=== PATIENT | female | born 1950 | race Caucasian/White ===

== ENCOUNTER 2018-04-28 00:20 | Outpatient (CLI) | payer MEDICARE, SELFPAY ==
--- NOTE | 2018-04-28 14:17 | DI.US_ITS ---
SYMPTOM/DIAGNOSIS: CAROTIC ARTERY STENOSIS I65.29 BILATERAL DUPLEX CAROTID ULTRASOUND 04/28/18 Duplex evaluation of the carotid circulation was performed according to the usual protocol. There is a total occlusion of the internal carotid artery on the right. There is 50-60% luminal diameter stenosis proximal left internal carotid artery on the basis of elevated peak systolic velocities, 171 cm/second. There are high grade stenoses of the ECA's bilaterally. Normal flow velocities in common carotid arteries. There is bilateral antegrade vertebral flow. CONCLUSION: Findings consistent with right ICA occlusion and 50-60% luminal diameter stenosis left ICA, proximal
== END 2018-04-28 00:40 ==
PROVIDERS: PCP Nurse Practitioner Family; Visit Provider Nurse Practitioner Family
DX: I65.23 Occlusion and stenosis of bilateral carotid arteries (principal)
CPT/HCPCS: 93880

== ENCOUNTER 2018-11-09 01:12 | Outpatient (CLI) | payer OTHER, SELFPAY ==
--- NOTE | 2018-11-09 12:50 | DI.RAD_ITS ---
SYMPTOMS/DIAGNOSIS: SCREENING FOR OSTEOPOROSIS IN POSTMENOPAUSAL WOMAN, Z78.0 DEXA SCAN: The scanogram is unremarkable. For the left hip, a T score of -0.6 and a Z score of 0.9 indicate osteopenia and an increased fracture risk. For the lumbar spine, a T score of 1.2 and a Z score of 3.4 are within the normal range. For the left forearm, a T score of -1.0 and a Z score of 1.0 are within the normal range.
== END 2018-11-09 01:32 ==
PROVIDERS: PCP Nurse Practitioner Family; Visit Provider Nurse Practitioner Family
DX: Z78.0 Asymptomatic menopausal state (principal); Z13.820 Encounter for screening for osteoporosis
CPT/HCPCS: 77080

== ENCOUNTER 2019-11-07 04:13 | Outpatient (CLI) | payer OTHER, SELFPAY ==
[2019-11-07 08:27] LABS: Hemoglobin A1C 5.6 % (3.8-5.6)
[2019-11-07 09:23] LABS: Calculated LDL 131 mg/dL (<100); Cholesterol 237 mg/dL (<200); HDL Cholesterol 62 mg/dL (40-60); Triglyceride 220 mg/dL (<150)
[2019-11-07 09:49] LABS: FREE T4 0.92 ng/dL (0.76-1.46)
[2019-11-17 17:07] LABS: BUN 19 mg/dL (7-18); Glucose 85 mg/dL (74-106)
[2019-11-17 17:08] LABS: CREATININE 0.78 mg/dL (0.55-1.02); Sodium 143 mmol/L (136-145)
[2019-11-17 17:09] LABS: CO2 29.1 mmol/L (21.0-32.0); Chloride 105 mmol/L (98-107); Potassium 4.1 mmol/L (3.5-5.1)
[2019-11-17 17:10] LABS: Anion Gap 8.9 mmol/L (3-11); TSH 1.83 uIU/mL (0.36-3.74)
== END 2019-11-07 04:33 ==
PROVIDERS: PCP Nurse Practitioner Family; Visit Provider Nurse Practitioner Family
DX: I10 Essential (primary) hypertension (principal); E78.5 Hyperlipidemia, unspecified; I77.9 Disorder of arteries and arterioles, unspecified
CPT/HCPCS: 36415; 80048; 80061; 83036; 84439; 84443

== ENCOUNTER 2021-02-25 01:40 | Outpatient (CLI) | payer OTHER, SELFPAY ==
--- NOTE | 2021-02-25 06:45 | DI.RAD_ITS ---
Exam(s) XR HIP RT COMPLETE AP PELVIS EXAM: XR HIP RT COMPLETE AP PELVIS-three views CLINICAL HISTORY: right hip pain x 6mo.M25.551. TECHNIQUE: 2D digital imaging was performed. COMPARISON: CR RIGHT HIP COMPLETE from 01/24/2013 FINDINGS: There is no evidence of pelvic or hip fracture. Additional views of the right hip reveal mild degene rative changes. No osseous lesions. No evidence of avascular necrosis. IMPRESSION: DATA REPOSITORY: RADIATION DOSE DELIVERED:
== END 2021-02-25 02:00 ==
PROVIDERS: PCP Nurse Practitioner Family; Visit Provider Nurse Practitioner Family
DX: M25.551 Pain in right hip (principal)
CPT/HCPCS: 73502

== ENCOUNTER 2021-05-15 00:23 | Outpatient (CLI) | payer OTHER, SELFPAY ==
--- NOTE | 2021-05-15 06:15 | DI.MAMMO_ITS ---
Exam(s) MAMMO SCREENING EXAM: MAMMO SCREENING CLINICAL HISTORY: screening,z12.39. TECHNIQUE: Bilateral full field digital CC and MLO mammographic images were obtained with 3D tomosyn thesis and utilizing computer aided detection (CAD). COMPARISON: Prior mammograms dating back to 2011, the most recent being October 2017. FINDINGS: No new significant radiograph findings in left breast. In the anterior aspect of the right breast there is a new microcalcification group. This is located quite anteriorly and just medial to the nipple. Requires spot compression magnification views. Ante riorly there is a peripherally calcified small oil cyst noted, this being independent of the other mi crocalcification group described above. No associated mass. There is no significant architectural distortion nor skin thickening-retraction. IMPRESSION: 1. No radiographic evidence of malignancy in left breast. 2. New anteriorly located right breast microcalcification group. Spot magnification views in both CC and MLO planes recommended. Also possible ultrasound depending on results of the additional spot co mpression views. BI-RADS Category 0 - Assessment Incomplete: Need additional imaging evaluation Breast Density - Category B - Scattered areas of fibroglandular density Breast density Category C or D implies that the patient has dense breast tissue. Dense breast tissue can make it harder to find cancer on a mammogram. Dense breast tissue is also associated with an incr eased risk of breast cancer. This information about the result of the mammogram report was provided to the patient to raise their awareness. Use this report when you speak with the patient about their risks for breast cancer, which includes their family history. At that time, you may recommend additional screening tests (Ultrasoun d or MRI) as these tests may add significant information. A negative radiographic report should not delay biopsy if a dominant or clinically suspicious mass is present. Up to ten percent of cancers are not identified on mammography. A negative report may reinforce clinical impression. Adenosis and dense breasts may obscure an underlying neoplasm. False positive reports average 6 to 10%. Patient will receive a letter notifying them of these results.
== END 2021-05-15 00:43 ==
PROVIDERS: PCP Nurse Practitioner Family; Visit Provider Nurse Practitioner Family
DX: Z12.31 Encounter for screening mammogram for malignant neoplasm of breast (principal); R92.8 Other abnormal and inconclusive findings on diagnostic imaging of breast; R92.0 Mammographic microcalcification found on diagnostic imaging of breast
CPT/HCPCS: 77063; 77067

== ENCOUNTER 2021-05-28 01:28 | Outpatient (CLI) | payer OTHER, SELFPAY ==
--- NOTE | 2021-05-28 09:30 | DI.US_ITS ---
Exam(s) MG MAMMO SCREEN CALL BACK UNI US BREAST RT LIMITED EXAM: MG MAMMO SCREEN CALL BACK UNI CLINICAL HISTORY: F/U ABNL MAMMO, NEW MICROCALCIFICATION, CALCIFIED SMALL OIL CYST, RT BREAST TECHNIQUE: Mammograms were interpreted according to the usual protocol including computer analysis w [employer] CAD system, tomosynthesis and C-view imaging. COMPARISON: FINDINGS: Additional mammographic views of the right breast and right breast ultrasound are interpreted in conj unction. These examinations were obtained to evaluate microcalcifications of the medial retroareolar portion of the right breast seen on recent mammogram. Magnification views show 10-12 microcalcifications in this grouping, most are rounded but there are s ome linear and curvilinear forms period the appearance of new group of microcalcification with these abnormal forms would increase risk of malignancy. No mammographically or ultrasonographically identi fied mass in this patient. The microcalcifications were not visible ultrasonographically. A 3 britton meter or oil cyst seen mammographically lateral to the nipple is also identified ultrasonographically today. IMPRESSION: Suspicious grouping of microcalcifications in medial retroareolar portion of the breast. Biopsy is r ecommended and should be performed stereotactically due to the inability to visualize ultrasonographi peg. BI-RADS Category 4 - Suspicious Abnormality: Biopsy should be considered Breast Density - Category B - Scattered areas of fibroglandular density
== END 2021-05-28 01:48 ==
PROVIDERS: PCP Nurse Practitioner Family; Visit Provider Nurse Practitioner Family
DX: R92.8 Other abnormal and inconclusive findings on diagnostic imaging of breast (principal); R92.0 Mammographic microcalcification found on diagnostic imaging of breast
CPT/HCPCS: 76642; 77063; 77067

== ENCOUNTER 2022-03-10 11:17 | Outpatient (CLI) | payer MEDICARE, SELFPAY ==
--- NOTE | 2022-03-10 | DI.RAD_ITS ---
Exam(s) XR CHEST 2V PA LATERAL EXAM: XR CHEST 2V PA LATERAL CLINICAL HISTORY: PULMONARY NODULES,R91.1,S/P BRONCHOSCOPY,NOW COUGH AND SOB TECHNIQUE: 2D digital imaging was performed. COMPARISON: No exams were available for comparison FINDINGS: HEART: Normal size. Aorta: PULMONARY VASCULATURE: Normal. LUNGS: Clear. PLEURAL SPACE: No pleural effusion or pneumothorax. BONE:Unremarkable for age. No pneumomediastinum or pneumoperitoneum. IMPRESSION: No acute abnormality. DATA REPOSITORY: RADIATION DOSE DELIVERED:
== END 2022-03-10 11:37 ==
LOC: DI 11:18
PROVIDERS: PCP Nurse Practitioner Family; Visit Provider Internal Medicine Critical Care Medicine
DX: R91.1 Solitary pulmonary nodule (principal); R05.8 Other specified cough; R06.02 Shortness of breath
CPT/HCPCS: 71046

== ENCOUNTER 2022-10-07 01:19 | Outpatient (CLI) | payer MEDICARE, SELFPAY ==
--- NOTE | 2022-10-07 06:45 | DI.CT_ITS ---
Exam(s) CT BRAIN NECK CTA EXAM: CT BRAIN NECK CTA CLINICAL HISTORY: acute left sided weakness,r53.1. TECHNIQUE: Imaging Protocol: Axial CT angiography was performed with multi-slice acquisition and mu lti-planar and/or 3D reconstructions. CONTRAST MATERIAL: Intravenous: Omnipaque 350 Contrast volume:structured data in ml COMPARISON: Carotid Doppler 04/28/2018 FINDINGS: CTA Neck W: Aortic arch anatomy: There is moderate atherosclerotic at the origin of great vessels off the aortic arch. 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 Anterior circulation: Both common carotid arteries ascend mild plaque and no tight stenosis. On the right side there is again noted occlusion of the right internal carotid artery at its origin, as was evident in 2018. This vessel is not reconstituted in the neck; this vessel is reconstituted at the supraclinoid aspect. Significant plaque cyst is also evident on the left side at the carotid bulb and proximal internal ca rotid artery. Estimated approximately 60 percent stenosis at this level. Above this level the left ICA is moderately tortuous in the upper neck but is patent and is also demonstrated be patent in the skull base-carotid canal. Posterior circulation: Both vertebral arteries originate in conventional fashion off of the subclavian arteries and there is no obvious stenosis at the origin of the vertebral arteries. Both vertebral arteries exhibit normal and equal luminal diameters within the foramen transversarium. No evidence of intraluminal thrombus nor dissection of the vertebral arteries. Both vertebral arteries contribute to the formation of the basilar artery at the skull base. CTA Brain W: Anterior circulation: The left internal carotid artery is patent in the skull base. There is mural calcification within th e intracavernous ICA but no tight stenosis therein. Supraclinoid aspect is patent. On the opposite- right side the occluded right ICA exhibits very thin flow within the cavernous sinus but is essential ly reconstituted at the supraclinoid aspect. Both A1 segments are patent as are the anterior cerebral arteries. There is no evidence of aneurysm at the level of the anterior communicating artery. Both middle cerebral arteries are patent with no evidence of significant stenosis nor intraluminal th rombus. There also no aneurysms of these vessels. Posterior circulation: The basilar artery ascends in the midline. Distally it gives off patent bilateral superior cerebella r arteries. Above this level the basilar artery terminates as patent bilateral posterior cerebral arteries. There appears to be a thin posterior communicating artery on the right side of the [id number]. There is no evidence of aneurysm at the tip of the basilar artery nor elsewhere in the [id number] is. CT BRAIN: There is no evidence of intracranial hemorrhage, mass effect, or shift of midline structures. There are no extra-axial fluid collections. Ventricles are not enlarged or shifted. There are no ring enh ancing lesions in the brain and no abnormal meningeal enhancement. IMPRESSION: 1. The right internal carotid artery is occluded at its origin and reconstituted in the intracranial compartment at the supraclinoid aspect of this vessel. There is approximately 60 percent stenosis at the origin of the left ICA in the neck. Occluded right ICA in the neck was demonstrated on Doppler ultrasound study performed April 2018. 2. Patent vertebral arteries. 3. Patent intracranial arteries. 4. No CT evidence of acute intracranial infarct, hemorrhage, nor abnormal ring-enhancing lesions in t he brain. There is also no abnormal meningeal enhancement. RADIATION DOSE DELIVERED: 2,225.59mGy.cm Total DLP DATA REPOSITORY: All CT scans at this facility are submitted to the National Radiology Data Registry (NRDR) Dose Index Registry (DIR) with the [employer] (ACR). RADIATION OPTIMIZATION: All CT scans at this facility use at least one of these dose optimization te chniques: automated exposure control; mA and/or kV adjustment per patient size (includes targeted exa ms where dose is matched to clinical indication); or iterative reconstruction.
[2022-10-07 08:42] LABS: CREATININE 0.8 mg/dL (0.55-1.02); Estimated GFR 77.27 (mL/min/1.73m2)
[2022-10-07 08:48] LABS: Calculated LDL 103 mg/dL (<100); Cholesterol 212 mg/dL (<200); HDL Cholesterol 77 mg/dL (40-60); Triglyceride 163 mg/dL (<150)
[2022-10-07] MEDS: Normal Saline - Diluent 50 ML VIAL IJ (08:53)
[2022-10-07] MEDS: Normal Saline Flush 10 ML SYR IVP (08:54)
[2022-10-07] MEDS: Omnipaque 350 MG/ML 500 ML BTL-Imaging package IJ (08:54)
== END 2022-10-07 01:39 ==
LOC: DI 01:19
PROVIDERS: PCP Nurse Practitioner Family; Visit Provider Nurse Practitioner Family
DX: R53.1 Weakness (principal); I10 Essential (primary) hypertension; I65.29 Occlusion and stenosis of unspecified carotid artery; I73.9 Peripheral vascular disease, unspecified; I77.9 Disorder of arteries and arterioles, unspecified
CPT/HCPCS: 70496; 70498; 80061; 82565

== ENCOUNTER 2023-02-23 10:08 | Outpatient (CLI) | payer MEDICARE, SELFPAY ==
[2023-02-23 12:45] LABS: Calculated LDL 93 mg/dL (<100); Cholesterol 173 mg/dL (<200); HDL Cholesterol 60 mg/dL (40-60); Triglyceride 102 mg/dL (<150)
[2023-02-24 09:52] LABS: Hepatitis C Ab w Rflx HCV PCR Negative (Negative)
[2023-02-24 11:27] LABS: Lab Add On Test DONE
[2023-02-24 11:39] LABS: Anion Gap 18.7 mmol/L (3-11); BUN 43 mg/dL (7-18); CO2 19.3 mmol/L (21.0-32.0); CREATININE 1.5 mg/dL (0.55-1.02); Calcium 9.4 mg/dL (8.5-10.1); Chloride 113 mmol/L (98-107); Estimated GFR 36.34 (mL/min/1.73m2); Glucose 440 mg/dL (74-106); Potassium 4.3 mmol/L (3.5-5.1); Sodium 151 mmol/L (136-145)
== END 2023-02-23 10:09 | disposition home or self-care (01) ==
LOC: LOS 10:09
PROVIDERS: PCP Nurse Practitioner Family; Referring Provider Nurse Practitioner Family; Visit Provider Nurse Practitioner Family
DX: E78.5 Hyperlipidemia, unspecified (principal); I10 Essential (primary) hypertension; Z11.59 Encounter for screening for other viral diseases
CPT/HCPCS: 36415; 80048; 80061; 86803

== ENCOUNTER 2023-02-27 03:14 | Outpatient (CLI) | payer MEDICARE, SELFPAY ==
[2023-02-27 12:32] LABS: Abs Immature Grans 0.01 10^3/uL (0.0-0.06); Absolute Basophil Count 0.06 10^3/uL (0.0-0.2); Absolute Lymphocyte Count 1.36 10^3/uL (1.2-3.4); Absolute Neutrophil Count 4.77 10^3/uL (1.2-6.7); Basophils % 0.8; Eosinophils % 5.2; HCT 41.5 % (36.0-46.0); HGB 13.9 g/dL (11.2-15.7); Immature Grans % 0.1; Lymphocytes % 17.7; MCH 33.2 pg (27.0-33.0); MCHC 33.5 % (32.0-36.0); MCV 99 fL (80-95); MPV 11.3 fL (8.0-11.0); Monocytes % 14.3; Neutrophils % 61.9; Platelet Count 330 10^3/uL (130-400); RBC 4.19 10^6/uL (3.93-5.22); RDW 12.9 % (11.7-14.6); RDW-SD 46.9 fL
[2023-02-27 12:45] LABS: Hemoglobin A1C 5.5 % (<5.7)
[2023-02-27 12:54] LABS: ALT 31 U/L (14-59); AST 23 U/L (15-37); Albumin 3.5 g/dL (3.4-5.0); Alkaline Phosphatase 104 U/L (46-116); Anion Gap 9.4 mmol/L (3-11); BUN 22 mg/dL (7-18); Bilirubin, Total 0.4 mg/dL (0.2-1.0); CO2 26.6 mmol/L (21.0-32.0); Chloride 100 mmol/L (98-107); Estimated GFR 59.12 (mL/min/1.73m2); Glucose 103 mg/dL (74-106); Potassium 3.4 mmol/L (3.5-5.1); Sodium 136 mmol/L (136-145); Total Protein 7.3 g/dL (6.4-8.2)
[2023-02-27 13:09] LABS: Vitamin D 25 Total 40.7 ng/mL (30-100)
== END 2023-02-27 03:15 | disposition home or self-care (01) ==
LOC: LOS 03:14
PROVIDERS: PCP Nurse Practitioner Family; Visit Provider Nurse Practitioner Family
DX: Z00.00 Encounter for general adult medical examination without abnormal findings (principal); E78.5 Hyperlipidemia, unspecified; I10 Essential (primary) hypertension
CPT/HCPCS: 36415; 80053; 82306; 83036; 85025

== ENCOUNTER → 2023-03-05 01:47 | Outpatient (CLI) | payer MEDICARE, SELFPAY ==
--- NOTE | 2023-03-05 08:45 | DI.DEXA_ITS ---
Exam(s) XR DEXA BONE DENSITY W/WO ROQUE EXAM: XR DEXA BONE DENSITY W/WO ROQUE CLINICAL HISTORY: osteopenia, POSTMENOPAUSAL STATUS, Z78.0 TECHNIQUE: Routine DEXA evaluation of the lumbar spine, hip, or forearm. COMPARISON: Prior DEXA scan of October 2018. FINDINGS: Performed on a [employer] unit. Lateral image: No compression fracture evident. Lumbar Spine total T-score: 1.8. Prior reading in October 2018 was 0.9 Hip total T-score:-0.6. This is identical reading to 2018. Independent reading at the level of the femoral neck yields T-score of -1.2 Forearm total T-score: -0.5 IMPRESSION: Bone mineral density measures in the osteopenia range. Fracture risk is moderate. Note: Any spine fracture indicates 5x risk for subsequent spine fracture and 2x risk for subsequent h ip fracture. World Health Organization criteria for BMD interpretation classify patients: Normal...... T- Score at or above -1.0 Osteopenic... T- Score between -1.0 and -2.5 Osteoporosis... T-Score at or below -2.5
== END ==
PROVIDERS: PCP Nurse Practitioner Family; Visit Provider Nurse Practitioner Family
DX: Z78.0 Asymptomatic menopausal state (principal); Z12.31 Encounter for screening mammogram for malignant neoplasm of breast; M85.89 Other specified disorders of bone density and structure, multiple sites
CPT/HCPCS: 77080

== ENCOUNTER → 2023-09-18 00:09 | Outpatient (CLI) | payer MEDICARE, SELFPAY ==
[2023-09-18 14:10] LABS: ALT 31 U/L (14-59); AST 19 U/L (15-37); Albumin 3.4 g/dL (3.4-5.0); Alkaline Phosphatase 105 U/L (46-116); Anion Gap 8.5 mmol/L (3-11); BUN 17 mg/dL (7-18); Bilirubin, Total 0.6 mg/dL (0.2-1.0); CO2 29.5 mmol/L (21.0-32.0); CREATININE 0.9 mg/dL (0.55-1.02); Calcium 9.4 mg/dL (8.5-10.1); Chloride 102 mmol/L (98-107); Estimated GFR 66.67 (mL/min/1.73m2); Glucose 95 mg/dL (74-106); Potassium 3.8 mmol/L (3.5-5.1); Sodium 140 mmol/L (136-145); Total Protein 6.8 g/dL (6.4-8.2)
[2023-09-18] MEDS: Omnipaque 350 MG/ML 100 ML BTL IJ (14:24)
[2023-09-18] MEDS: Omnipaque 350 MG/ML 50 ML BTL IJ (14:25)
[2023-09-18] MEDS: Normal Saline - Diluent 50 ML VIAL IJ ×2 (14:26→14:27)
--- NOTE | 2023-09-18 14:40 | DI.CT_ITS ---
Exam(s) CT ABD AORTA CTA W RUNOFF EXAM: CT ABD AORTA CTA W RUNOFF CLINICAL HISTORY: PAD, starting to have claudication,I73.9. TECHNIQUE: Imaging Protocol: Axial CT angiography was performed with multi-slice acquisition and mu lti-planar and/or 3D reconstructions. CONTRAST MATERIAL: Intravenous: Omnipaque 350 Contrast volume:structured data in ml Contrast route:I V - Oral: no COMPARISON: None FINDINGS: Vascular Structures: Heart: Mildly enlarged. No pericardial effusion. Abdomen: Celiac [place]/SMA: Moderate stenosis both SMA and celiac axis. Stenosis a proximal right renal artery . Renal Arteries: No evidence of stenosis. Two renal arteries perfuse each kidney. Aorta: No aneurysm. No dissection. On severe atherosclerotic changes. Pelvis: Iliac Arteries: Right occlusion of the right common iliac artery. There is diffuse calcific plaque b ut flow is demonstrated in the internal and external iliac arteries. Left: Heterogeneous calcific plaque. Common Femoral Arteries: Right: Calcific plaque. Ikbb-oq-lzvnbfdx stenosis. Left: Heavy calcific plaque with severe stenosis proximally. Reduced diameter distal to this area. No evidence of stenosis. Lower extremities: Right: Common Femoral: Multifocal plaque. No evidence of stenosis. Superficial Femoral: Multifocal plaque in the proximal to mid portions.. Popliteal: Scattered plaque. Knee Trifurcation: Diminished caliber. Lower leg vessels appear patent. Left: Superficial Femoral: Plaque proximally with multifocal stenosis. Plaque also seen distally with mul tifocal stenosis. Popliteal: Multifocal plaque Knee Trifurcation: Vessels are of diminished caliber. Lower leg vessels appear patent. Soft Tissues: Lungs: No acute findings. Liver: Normal density. No measurable mass. Gallbladder and biliary tract: Status post cholecystectomy. No radiodense calculus or dilation. Pancreas: Normal density, no abnormal calcifications or inflammatory process. Spleen: Normal. Kidneys: Normal size, contour and axis. No radiodense stones or obstructive uropathy. No masses seen. Adrenal glands: No masses seen. Aorta: Abdominal portion non-dilated. Severe atherosclerotic changes. Bladder: Symmetric distention, no gross wall thickening. Bowel: No obstruction or bowel wall thickening. Peritoneal cavity: No ascites, collection or mesenteric inflammatory response. Bones: Degenerative changes in the spine. Reproductive: Unremarkable. IMPRESSION: Severe atherosclerotic plaque throughout the aorta and branch vessels. Severe multifocal calcific pl aque throughout both lower extremity vessels with some sparing of the lower legs. Occlusion of the right common iliac artery.. Severe stenosis of the proximal left common femoral artery. RADIATION DOSE DELIVERED: 1,697.39mGy.cm Total DLP DATA REPOSITORY: All CT scans at this facility are submitted to the National Radiology Data Registry (NRDR) Dose Index Registry (DIR) with the [employer] (ACR). RADIATION OPTIMIZATION: All CT scans at this facility use at least one of these dose optimization te chniques: automated exposure control; mA and/or kV adjustment per patient size (includes targeted exa ms where dose is matched to clinical indication); or iterative reconstruction.
== END ==
PROVIDERS: PCP Nurse Practitioner Family; Visit Provider Nurse Practitioner Family
DX: I73.89 Other specified peripheral vascular diseases (principal)
CPT/HCPCS: 75635; 80053; J3490; Q9967

== ENCOUNTER 2025-05-18 09:18 | Outpatient (CLI) | payer MEDICARE, SELFPAY ==
[2025-05-18 15:15] LABS: HCT 40.5 % (36.0-46.0); HGB 13.6 g/dL (11.2-15.7); MCH 32.2 pg (27.0-33.0); MCHC 33.6 % (32.0-36.0); MCV 96 fL (80-95); MPV 11.1 fL (8.0-11.0); Platelet Count 263 10^3/uL (130-400); RBC 4.22 10^6/uL (3.93-5.22); RDW 13.0 % (11.7-14.6); RDW-SD 46.5 fL; WBC 7.03 10^3/uL (4.4-10.8)
[2025-05-18 15:16] LABS: Abs Immature Grans 0.01 10^3/uL (0.0-0.06); Immature Grans % 0.1 %
[2025-05-18 15:32] LABS: Hemoglobin A1C 5.3 % (<5.7)
[2025-05-18 15:36] LABS: TSH (W/Ref FT4) 2.13 uIU/mL (0.55-4.78); Vitamin D 25 Total 50 ng/mL (30-100)
[2025-05-18 15:52] LABS: ALT 20 U/L (10-49); AST 20 U/L (<34); Albumin 4.0 g/dL (3.2-5.0); Alkaline Phosphatase 77 U/L (46-116); Anion Gap 11.1 mmol/L (3-11); BUN 27 mg/dL (9-23); Bilirubin, Total 0.6 mg/dL (0.2-1.2); CO2 25.9 mmol/L (20.0-31.0); Calcium 9.8 mg/dL (8.3-10.6); Chloride 104 mmol/L (98-107); Cholesterol 150 mg/dL (<200); Glucose 91 mg/dL (74-106); HDL Cholesterol 62 mg/dL (>or=50); Potassium 3.9 mmol/L (3.5-5.1); Sodium 141 mmol/L (136-145); Total Protein 6.2 g/dL (5.7-8.2)
[2025-05-19 09:48] LABS: HIV-1/2 Ag & Ab Screen Negative (Negative)
[2025-05-19 09:52] LABS: HBs Antibody, Quant >1000.0 mIU/mL (See Note); Hepatitis B Surface Antigen Negative (Negative)
== END 2025-05-18 09:19 | disposition home or self-care (01) ==
LOC: LOS 09:18
PROVIDERS: PCP Nurse Practitioner Family; Visit Provider Nurse Practitioner Family
DX: Z11.59 Encounter for screening for other viral diseases (principal); Z00.00 Encounter for general adult medical examination without abnormal findings; C50.911 Malignant neoplasm of unspecified site of right female breast; C34.2 Malignant neoplasm of middle lobe, bronchus or lung; I10 Essential (primary) hypertension; R73.01 Impaired fasting glucose; M85.80 Other specified disorders of bone density and structure, unspecified site; Z11.4 Encounter for screening for human immunodeficiency virus [HIV]
CPT/HCPCS: 36415; 80053; 80061; 82306; 86704; 86706; 87340; 87389; 83036; 84443; 85025